=== PATIENT | female | born 1960 | race Caucasian/White ===

== ENCOUNTER → 2016-11-15 | Outpatient (CLI) | payer OTHER ==
[~2016-11-15] MED LIST: ARIMIDEX1 MG PO; CLARITIN10 MG PO; DARVOCET N 1001 TAB PO; DAYPRO600 M1 PO; FISH OIL; FLEXERIL5 MG PO; LEVOFLOXACIN500 MG PO; PREDNISONE10 MG PO; PROVENTIL0.09 MG/A1 INH; SYNTHROID,LEVO50 MCG PO; SYNTHROID0.025 MG PO; THEROMEGA1000 MG PO; VITAMIN D5000 IU PO; [UNRECOGNIZED DRUG - REMARK]
== END | disposition home or self-care (01) ==
LOC: RAD 15:10 → LAB 15:10
DX: M54.6 Pain in thoracic spine (principal)

== ENCOUNTER → 2016-12-26 | Outpatient (CLI) | payer OTHER | END | disposition home or self-care (01) | LOC: MAMMO 07:27 | DX: C50.919 Malignant neoplasm of unspecified site of unspecified female breast (principal); I89.0 Lymphedema, not elsewhere classified; R92.8 Other abnormal and inconclusive findings on diagnostic imaging of breast; Z90.11 Acquired absence of right breast and nipple ==

== ENCOUNTER 2017-11-16 11:03 | Emergency (ER) | payer OTHER ==
[~2017-11-16] VITALS: Ht 167.6 cm; Wt 92.1 kg
[2017-11-16 11:07] VITALS: BP 154/102
[2017-11-16 11:51] LABS: BASO % 0.6 % (0.0-1.0); EOS # 0.3 10*3/uL (0.0-0.4); EOS % 6.3 % (1.0-4.0); HEMATOCRIT 42.1 % (37.0-47.0); HEMOGLOBIN 13.8 g/dl (12.0-16.0); LYMPH # 1.7 10*3/uL (1.3-4.4); LYMPH % 34.3 % (27.0-41.0); MEAN CELL VOLUME 95.5 fl (81.0-99.0); MEAN CORPUSCULAR HGB 31.3 pg (27.0-31.0); MEAN CORPUSCULAR HGB CONC 32.8 g/dl (33.0-37.0); MEAN PLATELET VOLUME 11.5 fl (9.6-12.3); MONO # 0.4 10*3/uL (0.1-1.0); MONO % 7.9 % (3.0-9.0); NEUT # 2.5 10*3/uL (2.3-7.9); NEUT % 50.7 % (47.0-73.0); PLATELET COUNT AUTOMATED 192 10*3/uL (130-400); RED BLOOD COUNT 4.41 10*6/uL (4.10-5.10); RED CELL DISTRI WIDTH 13.3 % (0-14.5)
[2017-11-16 12:00] LABS: ACT PARTIAL THROMBO TIME 23.2 SECONDS (20.8-31.5)
[2017-11-16 12:08] LABS: ALBUMIN 4.1 gm/dl (3.1-4.5); ALKALINE PHOSPHATASE 87 U/L (45-117); BUN 17 mg/dl (7-24); CHLORIDE 103 mmol/L (98-107); CREATININE 0.82 mg/dL (0.55-1.02); LIPASE 76 U/L (73-393); POTASSIUM 3.5 mmol/L (3.5-5.1); SGOT/AST 16 IU/L (3-35); SGPT/ALT 23 U/L (12-78); SODIUM 140 mmol/L (136-145)
[2017-11-16 12:14] LABS: TROPONIN I < 0.015 ng/ml (<0.045)
[2017-11-16] MEDS ORDERED: PREDNISONE10 MG PO (13:25)
[2017-11-16] MEDS ORDERED: LEVAQUIN750 M1 PO (13:25)
== END 2017-11-16 13:33 | disposition home or self-care (01) ==
LOC: ED 11:03
PROVIDERS: Emergency Medicine
DX: J45.901 Unspecified asthma with (acute) exacerbation (principal); J20.9 Acute bronchitis, unspecified; Z90.89 Acquired absence of other organs; Z79.899 Other long term (current) drug therapy

== ENCOUNTER 2018-01-27 09:04 | Emergency (ER) | payer OTHER ==
[~2018-01-27] VITALS: Ht 167.6 cm; Wt 92.1 kg
[2018-01-27 09:04] VITALS: BP 148/86
[~2018-01-27 09:04] MED LIST changes: +LEVAQUIN750 M1 PO
== END 2018-01-27 09:27 | disposition home or self-care (01) ==
LOC: ED 09:04
DX: T16.2XXA Foreign body in left ear, initial encounter (principal); Z79.899 Other long term (current) drug therapy; Z90.89 Acquired absence of other organs; Y92.9 Unspecified place or not applicable

== ENCOUNTER 2018-03-07 11:03 | Emergency (ER) | payer OTHER ==
[~2018-03-07] VITALS: Ht 167.6 cm; Wt 92.1 kg
[2018-03-07 11:05] VITALS: BP 165/90
[2018-03-07] MEDS ORDERED: OMNICEF300 MG PO (11:30)
== END 2018-03-07 11:35 | disposition home or self-care (01) ==
LOC: ED 11:03
DX: J01.00 Acute maxillary sinusitis, unspecified (principal); J44.9 Chronic obstructive pulmonary disease, unspecified; Z79.2 Long term (current) use of antibiotics

== ENCOUNTER 2018-08-12 06:42 | Emergency (ER) | payer OTHER ==
[~2018-08-12] VITALS: Ht 167.6 cm; Wt 93.4 kg
[~2018-08-12 06:42] MED LIST changes: +OMNICEF300 MG PO
[2018-08-12 07:11] LABS: BILIRUBIN NEGATIVE (NEGATIVE); BLOOD 3+ (NEGATIVE); CLARITY CLOUDY (CLEAR); COLOR YELLOW (YELLOW); GLUCOSE NEGATIVE (NEGATIVE); KETONE NEGATIVE (NEGATIVE); LEUKO ESTERASE 3+ (NEGATIVE); NITRITE POSITIVE (NEGATIVE); PH 5.5 (5.0-9.0); SPECIFIC GRAVITY 1.015 (1.005-1.030); UROBILINOGEN 0.2 E.U./dl (0.2-1.0)
[2018-08-12 07:16] VITALS: BP 148/104
[2018-08-12 07:23] LABS: WBC TNTC wbc/hpf (0-5)
[2018-08-12] MEDS ORDERED: DOXYCYCLINE100 M3 PO (08:06)
== END 2018-08-12 08:40 | disposition home or self-care (01) ==
LOC: ED 06:42
PROVIDERS: Student in an Organized Health Care Education/Training Program
DX: J20.9 Acute bronchitis, unspecified (principal); N39.0 Urinary tract infection, site not specified; J44.9 Chronic obstructive pulmonary disease, unspecified; Z79.2 Long term (current) use of antibiotics; Z79.899 Other long term (current) drug therapy

== ENCOUNTER → 2019-02-02 | Outpatient (CLI) | payer OTHER ==
[~2019-02-02] MED LIST changes: +DOXYCYCLINE100 M3 PO
[2019-02-02 09:15] LABS: BASO # 0.1 10*3/uL (0.0-0.1); EOS # 0.3 10*3/uL (0.0-0.4); EOS % 5.8 % (1.0-4.0); HEMATOCRIT 41.9 % (37.0-47.0); HEMOGLOBIN 13.6 g/dl (12.0-16.0); LYMPH # 2.1 10*3/uL (1.3-4.4); LYMPH % 40.6 % (27.0-41.0); MEAN CORPUSCULAR HGB 32.5 pg (27.0-31.0); MEAN CORPUSCULAR HGB CONC 32.5 g/dl (33.0-37.0); MEAN PLATELET VOLUME 10.8 fl (9.6-12.3); MONO # 0.4 10*3/uL (0.1-1.0); MONO % 7.8 % (3.0-9.0); NEUT # 2.3 10*3/uL (2.3-7.9); NEUT % 44.6 % (47.0-73.0); PLATELET COUNT AUTOMATED 206 10*3/uL (130-400); RED BLOOD COUNT 4.19 10*6/uL (4.10-5.10); RED CELL DISTRI WIDTH 13.9 % (0-14.5); WHITE BLOOD COUNT 5.2 10*3/uL (4.8-10.8)
[2019-02-02 09:38] LABS: ALBUMIN 4.3 gm/dl (3.1-4.5); ALKALINE PHOSPHATASE 90 U/L (45-117); BUN 15 mg/dl (7-24); CHLORIDE 108 mmol/L (98-107); CHOLESTEROL 222 mg/dL (<200); FREE T4 0.91 ng/dl (0.76-1.46); HDL CHOLESTEROL 87 mg/dl (40-60); LDL CHOLESTEROL 113 mg/dL (9-159); POTASSIUM 3.5 mmol/L (3.5-5.1); SGOT/AST 17 IU/L (3-35); SGPT/ALT 22 U/L (12-78); SODIUM 142 mmol/L (136-145); TOTAL PROTEIN 8.4 gm/dL (6.4-8.2); TRIGLYCERIDES 111 mg/dl (<150); VLDL CHOLESTEROL 22 mg/dL (6-40)
[2019-02-02 10:58] LABS: VITAMIN D, 25-HYDROXY 19.6 ng/mL (30-100)
== END | disposition home or self-care (01) ==
LOC: LAB 08:27 → US 09:00
PROVIDERS: Internal Medicine
DX: Z13.1 Encounter for screening for diabetes mellitus (principal); Z13.220 Encounter for screening for lipoid disorders; Z13.21 Encounter for screening for nutritional disorder; I10 Essential (primary) hypertension; E55.9 Vitamin D deficiency, unspecified; R60.0 Localized edema

== ENCOUNTER → 2019-02-06 | Outpatient (CLI) | payer OTHER | END | disposition home or self-care (01) | LOC: CT 13:00 | DX: R10.84 Generalized abdominal pain (principal) ==

== ENCOUNTER 2019-04-25 04:31 | Inpatient (IN) | payer OTHER ==
[2019-04-25] VITALS (9 sets, daily range): BP systolic 112–122; BP diastolic 69–102
[~2019-04-25] VITALS: Ht 167.6 cm; Wt 93.0 kg
--- NOTE | ~2019-04-25 | CON ---
[place], [place] REPORT OF CONSULTATION NAME: MEAGAN DENTON [facility] #: [id number] UNIT #: [id number] ROOM: [facility] DOCTOR: MADDY العراقي MD BIRTHDATE: [birth year] DOS: 04/25/2019 PULMONARY CONSULTATION, EVALUATION AND MANAGEMENT REASON FOR CONSULTATION: For the assessment of current abnormal respiratory symptom and respiratory distress. HISTORY OF PRESENT ILLNESS: This is a 59-year-old white female patient who has been brought to the hospital this morning. The patient presented to the hospital this morning at 4:32 seen by the ER triage nurse. The patient has reported symptoms of cough, which was started in the last couple of days, which has been noted gradually worsening, symptoms started after upper respiratory tract infection. The patient developed significant symptoms of shortness of breath, in distress, was assessed in the Emergency Room. She has been noted with tachycardia in the Emergency Room. She has been given 3 DuoNeb treatment, also given steroids and other treatment in the Emergency Room. The patient has been admitted to the hospital per order of primary care physician. This morning, the patient was seen, she has been using oxygen supplementation 3 liters nasal cannula. The coughing has been noted to be intermittently and not resolved. Denies symptoms of fever or chills. The wheezing was reported by the patient also seemed to be decreased. There were no symptoms of chest pain, stated by the patient. REVIEW OF SYSTEMS: CONSTITUTIONAL SYMPTOMS: Fatigue and tiredness noted without any symptoms of fever or chills. EYES: Denies any burning, redness, or tenderness. EARS, NOSE, THROAT SYMPTOMS: No sore throat, hoarseness, otalgia, postnasal drainage or epistaxis. CARDIOVASCULAR: Denies angina pain, edema or pain of the lower extremities. GASTROINTESTINAL SYMPTOMS: Denies dysphagia, nausea, vomiting, diarrhea, abdominal pain, hematemesis, melena or hematochezia. SKIN: Denies lesions or rashes. MUSCULOSKELETAL: No acute joint pain, redness, or tenderness. CENTRAL NERVOUS SYSTEM: No dizziness, headache, diplopia or syncopal episodes. Remaining systems were reviewed, they were noted all negative. PAST MEDICAL HISTORY: 1. Known with history of uncomplicated moderate persistent bronchial asthma. 2. Allergic rhinitis. 3. Nasal polyposis removed with the surgery. 4. Cancer of the right breast treated with a radical mastectomy and hormonal treatment. 5. Hypothyroidism. 6. History of obstructive sleep apnea disorder, nonadherence with the treatment. 7. History of chronic right diaphragmatic paralysis, idiopathic. PAST SURGICAL HISTORY: [place], [place] REPORT OF CONSULTATION NAME: MEAGAN DENTON UNIT #: [id number] ROOM: [facility] DOCTOR: JULISSA COLÓN MD,MADDY BIRTHDATE: [birth year] 1. Reported as nasal polyps removal. 2. Modified radical mastectomy on the right side in 1999. 3. Ovarian cyst removal. SOCIAL HISTORY: The patient reported tobacco use for only few years as a light tobacco use couple of cigarettes a day that has been discontinued. She denies history of alcohol use or illicit drug use. The patient is single, has one child, lives in own home. Denies history of alcohol use or any illicit drug use. FAMILY HISTORY: The patient's father at 55 years with complication of lung cancer. Mother at age of 84 years with complication of myocardial infarction. One of the sisters at age of 45 with complication related to the lung cancer. CURRENT MEDICATIONS: Administered was noted as IV Solu-Medrol 20 mg t.i.d., Flonase b.i.d., Synthroid 50 mcg daily, Coreg 3.125 mg p.o. b.i.d., IV Rocephin, Singulair 10 mg daily, DuoNeb q. 4 hours. DRUG ALLERGIES: Noted as no known drug allergies. PHYSICAL EXAMINATION: GENERAL: A 59-year-old female currently noted to be awake, alert, without any distress this morning of assessment in the ICU, height of 5 feet 6 inches, weight of 205 pounds. VITAL SIGNS: For the patient recorded a normal temperature, respiratory rate 20-24, heart rate of 143, 120, sinus tachycardia, blood pressure 117/71 to 120/84. Pulse oxygen saturation recorded at rest to room air 94% saturation, 60% oxygen saturation noted upon assessment in the Emergency Room. Then, 100% nonrebreather over 99% saturation. HEENT: Examination shows head was atraumatic. Eyes nonicterus. NECK: Supple. CARDIOVASCULAR SYSTEM: S1, S2 is audible. LUNGS: Noted with decreased breath sounds, scattered wheezing, no crackles. ABDOMEN: Flat, soft, nontender. Bowel sounds present. EXTREMITIES: Without edema, clubbing, cyanosis. MUSCULOSKELETAL: Without acute deformity. VISIBLE SKIN: No lesions or rashes. CENTRAL NERVOUS SYSTEM: Cranial nerves 2-12 intact. LABORATORY DATA: CBC that was done for this patient on 04/25/2019, WBC count 14.7, hemoglobin and hematocrit, platelet count were noted as normal. The CMP that was done on admission, glucose 160, BUN and creatinine normal, remaining electrolytes normal. Bilirubin 1.9, mildly elevated. PT/PTT were noted as normal. Arterial blood gas, which was done at 7:10 as I ordered, pH of 7.41, pCO2 of 38, pO2 78.2. Chest x-ray, which was done shows elevation of the right hemidiaphragm without any acute abnormalities. CT scan of the chest that was done for this patient as well shows elevation of right hemidiaphragm, which is a chronic finding. Scarring noted in the right apical area for the patient as well. There were no findings of acute pulmonary infiltration. Elevation of [place], [place] REPORT OF CONSULTATION NAME: MEAGAN DENTON UNIT #: [id number] ROOM: [facility] DOCTOR: [facility]N [facility] BIR[facility]: [birth year] right hemidiaphragm was noted. Left lung was noted clear. The right lung noted clear of any acute infiltration or nodules. IMPRESSION: 1. The patient who has been known with history of cancer of the breast on the right side with surgical intervention in 1999 without any recurrence and history of chronic right diaphragmatic paralysis and bronchial asthma, currently presented and admitted to the hospital with acute severe hypoxemic respiratory failure. 2. Sinus tachycardia related to current acute exacerbation of bronchial asthma. 3. History of allergic rhinitis, nasal polyposis. 4. Family history of lung cancer in the father and one of the sister who from that. 5. Previous remote low-grade tobacco use, smoking was not continued by the patient. PLAN OF MANAGEMENT: Continue the current oxygen supplementation at the present time and monitoring sinus tachycardia. Continue bronchodilators and corticosteroids. Continue antibiotics. Sputum for Gram stain culture will be done if the patient expectorate any sputum. BiPAP is not needed. Monitor the patient's respiratory status closely as well. Other supportive therapy, plan of management, care plan of treatment, additional treatment changes will be recommended based on the progression of the illness. Usual care, other supportive plan of management, care plan of treatment and therapies. MADDY COSTA MD CM:CONSTR:REPORT OF CONSULTATION 1042 04/25/194 interface
--- NOTE | ~2019-04-25 | EKG ---
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
--- NOTE | ~2019-04-25 | EKG ---
[place], [place] ELECTROCARDIOGRAM REPORT NAME: MEAGAN DENTON UNIT #: [id number] ROOM: [facility] DOCTOR: JOVITA DRAFT REPORT BIRTHDATE: [birth year] 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
--- NOTE | ~2019-04-25 | PR ---
[place], [place] PROGRESS NOTE [id number] UN[facility] #: [id number] ROOM: [facility] DOCTOR: JULISSA COLÓN MD,MADDY BIRTHDATE: [birth year] DOS: 04/26/2019 PULMONARY PROGRESS NOTE SUBJECTIVE: The patient has been noted comfortable at this time, has not been noted further episodes of hypoxia, but noted panic attacks at times by the nursing staff resulting in symptoms of shortness of breath. Denies symptoms of fever or chills. This morning, the patient noted comfortably on the bed without any distress this morning of assessment. OBJECTIVE: VITAL SIGNS: Normal temperature, respiratory rate 20, heart rate 98, blood pressure 112/82. Pulse oxygen saturation on room air 94% saturation. HEENT: Examination shows head was atraumatic. Eyes nonicterus. NECK: Supple. CARDIOVASCULAR SYSTEM: S1, S2 audible. LUNGS: Without wheeze or crackles. ABDOMEN: Soft, nontender. Bowel sounds present. EXTREMITIES: The patient noted without any acute edema. MUSCULOSKELETAL: Without any deformities. LABORATORY DATA: No labs were done today. IMPRESSION: The patient with resolving acute hypoxic respiratory failure with some panic attack with exacerbation of chronic obstructive pulmonary disease. The patient has been ambulated, but noted with lowest pulse oximetry at 89%, which are recorded quickly within a minute or so to normal level. PLAN OF MANAGEMENT: The patient could be considered for home discharge on oral dose of tapering prednisone to be given. She will also need to be assessed for the medical panic disorder by the primary care physician. A 6-minute walk test to be done prior to discharge if that occurs today. MADDY COSTA MD CM:PNTRANS [id number] [id number] MADDY COLÓN MD 04/26/19 7780 interface
--- NOTE | ~2019-04-25 | WRIGHTHP ---
[place], [place] PATIENT HISTORY AND PHYSICAL EXAM NAME: MEAGAN DENTON [facility] #: [id number] UNIT #: [id number] ROOM: [facility] DOCTOR: NAKUL DOUGLAS MD BIRTHDATE: [birth year] DOS: 04/25/2019 HISTORY OF PRESENT ILLNESS: A 59-year-old female with past medical history of; 1. Severe persistent asthma. 2. Chronic obstructive pulmonary disease. 3. History of breast cancer with right mastectomy in the year 1999. 4. History of hypothyroidism. 5. Peptic ulcer disease. The patient presented to [facility] Emergency Department with increasing shortness of breath starting yesterday. The patient's pulse ox was found to be as low as 65%. In the Emergency Department, she was tachycardic. The patient was found to have acute or chronic respiratory failure with acute exacerbation of chronic obstructive pulmonary disease and after initial treatment and 3 breathing treatments in the Emergency Department and a CT scan of the chest, which did not show any pneumonia or congestive heart failure. The patient was admitted to ICU for close monitoring and under supervision of the cook fish eggs, Dr. Griggs. After admission and on oxygen, the patient's pulse oximetry has improved to normal. No complaints of chest pain. No dizziness or fainting episode. No other GI or urinary symptoms. REVIEW OF SYSTEMS: RESPIRATORY: Increased shortness of breath and hypoxemia. GASTROINTESTINAL: No nausea, vomiting, diarrhea or constipation. CARDIOVASCULAR SYSTEM: No chest pains or palpitations. GENITOURINARY: No burning or frequency of the urine. No abdominal pains. FAMILY HISTORY: Noncontributory. HOME MEDICATIONS: The patient on Flonase, Coreg, levothyroxine, Singulair, DuoNebs at home. ALLERGIES: No known drug allergies. PHYSICAL EXAMINATION: GENERAL: Alert, oriented x 3, in no visible distress. HEENT AND NECK: Extraocular movements are intact. Sclerae are anicteric. Oral mucosa is moist and clean. No obvious facial weakness. Neck is supple without any lymphadenopathy. No thyromegaly. No JVD. No carotid arterial bruits. LUNGS: Decreased breath sounds all over. CARDIOVASCULAR SYSTEM: Heart rate is regular in rate and rhythm. S1 and S2 normally audible. No significant murmur or any other abnormal cardiac sounds. ABDOMEN: Soft, nontender. No obvious organomegaly. Bowel sounds are present. No obvious herniation. EXTREMITIES: Without significant cyanosis or edema. Warm to touch. CENTRAL NERVOUS SYSTEM: Alert and oriented x 3. Cranial nerves II-XII are intact. Speech is normal. The patient is able to move all extremities. Normal muscle strength. Deep tendon reflexes are equal on both sides. Plantars were downgoing. [place], [place] PATIENT HISTORY AND PHYSICAL EXAM NAME: MEAGAN DENTON [facility] #: [id number] UNIT #: [id number] ROOM: [facility] DOCTOR: NAKUL DOUGLAS MD BIRTHDATE: [birth year] LABORATORY DATA: CT of the chest without acute abnormality and no pneumonia. Cardiac enzymes negative. ProBNP at 128. Blood gases showing baseline pH, pO2 of 78, pCO2 of 38. Normal serum electrolytes. Blood sugar 160, bilirubin 1.9. IMPRESSION: 1. The patient with acute exacerbation of chronic obstructive pulmonary disease and acute exacerbation of severe persistent asthma with acute over chronic respiratory failure with pulse ox of only 65% improved with 3 breathing treatments. The patient was also tachycardic and is being observed closely in the ICU and treated with Solu-Medrol, antibiotic, oxygen and nebulizer treatments and Dr. Griggs, the cook fish eggs has been consulted to follow. 2. Benign essential hypertension, treated and controlled. The patient remains on Coreg. 3. Hypothyroidism, replaced with levothyroxine. 4. History of peptic ulcer disease, presently asymptomatic. 5. History of right breast cancer and right mastectomy in remote past year 1999. NAKUL DOUGLAS MD CM:HISPHYS:PATIENT HISTORY AND PHYSICAL EXAMINATION 1039 1140 NAKUL DOUGLAS MD 04/25/19 1137 interface
--- NOTE | ~2019-04-25 | DS ---
[place], [place] DISCHARGE SUMMARY NAME: MEAGAN DENTON UNIT #: [id number] ROOM: [facility] DOCTOR: NAKUL DOUGLAS MD BIRTHDATE: [birth year] DOS: 04/26/2019 DISCHARGE DIAGNOSES: 1. Acute exacerbation of chronic obstructive pulmonary disease with acute over chronic respiratory failure with hypoxemia. 2. Benign essential hypertension. 3. Hypothyroidism. 4. Peptic ulcer disease. 5. History of right breast cancer and right mastectomy, year 1999. 6. Severe persistent asthma. HOSPITAL COURSE: The patient presented to [facility] hypoxemic with a 65% pulse ox, complaining of shortness of breath and she was also found to be tachycardic. The patient was admitted to the ICU and treated with bronchodilators, corticosteroids, oxygen and antibiotic and her breathing improved quickly. Dr. Griggs, the blood tester fowl evaluated and cleared her for discharge to home today because the patient was insisting on going home to take care of her dog also and the patient says she is going to leave anyway whether discharged or not. Sinus tachycardia related to respiratory failure has improved. Heart rate has come down to around 100 beats per minute from 120-130 beats per minute. Benign essential hypertension, treated and controlled. The patient takes Coreg. Hypothyroidism, replaced with levothyroxine. Peptic ulcer disease, presently asymptomatic. Right breast cancer, status post right mastectomy in the year 1999. LABORATORY DATA: Cardiac enzymes were negative. CT of the chest without contrast without any acute abnormality. Normal serum electrolytes, BUN and creatinine. Normal CBC except for white cell count of 14,700 on admission. DISCHARGE MANAGEMENT: Medrol Dosepak, Coreg 3.125 mg b.i.d., Flonase nasal spray 2 sprays each nostril once a day, levothyroxine 50 mcg daily, Singulair 10 mg a day, DuoNeb q.i.d. FOLLOWUP: With PCP in less than a week, [place], [place] DISCHARGE SUMMARY NAME: MEAGAN DENTON UNIT #: [id number] ROOM: [facility] DOCTOR: NAKUL DOUGLAS MD BIRTHDATE: [birth year] NAKUL DOUGLAS MD CM:MATTHEW 1214 1538 NAKUL DOUGLAS MD 04/26/19 1536 interface
--- NOTE | ~2019-04-25 | EKG ---
[place], [place] ELECTROCARDIOGRAM REPORT NAME: MEAGAN DENTON UNIT #: [id number] ROOM: [facility] DOCTOR: JOVITA DRAFT REPORT BIRTHDATE: [birth year] [facility] Test Date: 2019-04-25 Test Time: 07:16:47 Pat Name: MEAGAN DENTON Department: Room: 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
[2019-04-25 05:26] LABS: BASO % 0.3 % (0.0-1.0); EOS # 0.1 10*3/uL (0.0-0.4); EOS % 0.5 % (1.0-4.0); HEMATOCRIT 40.1 % (37.0-47.0); HEMOGLOBIN 13.2 g/dl (12.0-16.0); LYMPH # 1.8 10*3/uL (1.3-4.4); LYMPH % 12.3 % (27.0-41.0); MEAN CORPUSCULAR HGB 33.6 pg (27.0-31.0); MEAN CORPUSCULAR HGB CONC 32.9 g/dl (33.0-37.0); MEAN PLATELET VOLUME 10.9 fl (9.6-12.3); MONO # 0.9 10*3/uL (0.1-1.0); MONO % 5.9 % (3.0-9.0); NEUT # 11.9 10*3/uL (2.3-7.9); NEUT % 80.7 % (47.0-73.0); PLATELET COUNT AUTOMATED 181 10*3/uL (130-400); RED BLOOD COUNT 3.93 10*6/uL (4.10-5.10); RED CELL DISTRI WIDTH 13.2 % (0-14.5); WHITE BLOOD COUNT 14.7 10*3/uL (4.8-10.8)
[2019-04-25 05:46] LABS: ACT PARTIAL THROMBO TIME 24.4 SECONDS (20.0-32.1); ALBUMIN 4.4 gm/dl (3.1-4.5); ALKALINE PHOSPHATASE 69 U/L (45-117); BUN 10 mg/dl (7-24); CHLORIDE 104 mmol/L (98-107); CREATININE 0.89 mg/dL (0.55-1.02); POTASSIUM 4.1 mmol/L (3.5-5.1); SGOT/AST 15 IU/L (3-35); SGPT/ALT 26 U/L (12-78); SODIUM 136 mmol/L (136-145); TOTAL PROTEIN 8.1 gm/dL (6.4-8.2)
[2019-04-25 05:47] LABS: TROPONIN I < 0.015 ng/ml (<0.045)
--- NOTE | 2019-04-25 07:17 | NUR ---
REPORT RECEIVED AT 0705 FROM ANDREY HAIDER. THIS PT IS AWAKE AND ALERT. HER COLOR IS FAIR,SKIN W/D. RESPIRATIONS APPEAR MILDLY LABORED. PULSE OX ON 3L NASAL O2 IS 98% VS ARE STABLE. PT TELLS ME THAT SHE FEELS MUCH BETTER NOW,SHORTNESS OF BREATH HAS IMPROVED SINCE ARRIVAL. NAZARIO HAIDER
[2019-04-25 07:18] LABS: ABG BASE EXCESS 0.2 mmol/L (-2.0-2.0); ABG HCO3 24.1 mmol/l (22-26); ARTERIAL BLOOD GAS PCO2 38.6 mmHg (35-45); ARTERIAL BLOOD GAS PH 7.413 (7.35-7.45); ARTERIAL BLOOD GAS PO2 78.2 mmHg (80-90)
--- NOTE | 2019-04-25 07:57 | NUR ---
ATTEMPTING TO CALL ICU FOR PERMISSION TO BRING PT TO UNIT AND GIVE REPORT. PHONE IS NOT BEING ANSWERED. NAZARIO HAIDER
--- NOTE | 2019-04-25 08:20 | NUR ---
A 59, admitted to ICCU, under the services of Dr. MISAEL ANGELES,NAKUL Huerta with a diagnosis of HYPOXIA. Chief complaint is SHORTNESS OF BREATH. Patient arrived via ambulatory from ER. Monitor applied. Initial assessment completed. Vital signs taken and recorded. DR. MISAEL ANGELES,NAKUL Huerta notified of admission to the unit. Orders received. See assessment for past medical history, medications and allergies. Patient and/or family oriented to unit. [facility] ICCU visitation policy reviewed. Clothing/patient valuable form completed. JEFFERY CUEVA
[2019-04-25] MEDS ORDERED: COREG3.125 MG PO (08:28)
[2019-04-25] MEDS ORDERED: SINGULAIR10 M1 PO (08:30)
[2019-04-25] MEDS ORDERED: FLONASE ALLERG9.9 ML NAS (08:31)
[2019-04-25] MEDS ORDERED: PROAIR HFA8.5 GM INH (08:33)
[2019-04-25] MEDS ORDERED: ARNUITY ELLIP100 MCG INH (10:08)
[2019-04-25] MEDS ORDERED: VITAMIN D50000 UNIT PO (10:13)
--- NOTE | 2019-04-25 19:30 | NUR ---
PATIENT SITTING UP IN BED WITH FAMILY AT THE BEDSIDE. PATIENT DENIES ANY PAIN, DISCOMFORT OR SHORTNESS OF BREATHE UPON ASSESSMENT. CHELSEA HOSE APPLIED, PATIENT IS SINUS TACH ON THE MONITOR. CALL LIGHT WITHIN REACH. SEE ASSESSMENT.
[2019-04-26] VITALS: BP 113/69
[2019-04-26 04:00] VITALS: BP 106/77
[2019-04-26 08:00] VITALS: BP 112/82
--- NOTE | 2019-04-26 09:45 | NUR ---
PT WALKED IN JOYA TO ELEVATOR AND BACK AROUND, POX 93% DR COSTA HERE AND AWARE
--- NOTE | 2019-04-26 11:00 | NUR ---
Housekeeper Cleaning Cooking in to talk to patient. Patient states lives at home alone with her son calling to check in on her every day. There are 3 steps in the home. Physician: Dr. Karina Ly Pharmacy: [facility] Home health services: none Patient's level of ADLs: INDEPENDENT Patient has working utilities: yes DME: none Follow-up physician's appointment after d/c: she prefers to make her own follow up appt after discharge Does patient want to access PORTAL?: no Discharge plan discussed with patient. She lives at home alone with her son calling to check in on her every day. She is independent in her ADLs and ambulation. Discussed home health care services and she denies any home needs at this time. She states she needs to get home today and take care of her dog as he is taking care of himself right now. Asked if there was anyone who could take care of him while she is here in the hospital and she stated there was not. When medically stable she will be discharged to home. She will drive herself home as her car is here in the ER parking lot. VALENCIA TREVINO
[2019-04-26] MEDS ORDERED: MEDROL DOSEPAK4 MG PO (12:01)
--- NOTE | 2019-04-26 12:09 | NUR ---
PATIENT TESTED FOR THE USE OF HOME OXYGEN. ON ROOM AIR PATIENTS VITALS WERE: HEART RATE:96 BLOOD PRESSURE:112/82 RESPIRATORY RATE:18 SPO2:93% DURING AMBULATION THE PATIENT DID NOT COMPLAIN OF ANY SHORTNESS OF BREATH NOR SHAKES, WEAKNESS. PATIENTS SPO2 WOULD DROP DOWN TO 88% FOR A SECOND, AND JUMP BACK UP TO 91%. SUSTAINING MOSTLY AT 90-91%. PATIENT DID NOT QUALIFY.
--- NOTE | 2019-04-26 12:20 | NUR ---
DR DOUGLAS HERE, PT DC ARIANNEBURNHAM
== END 2019-04-26 12:20 | disposition home or self-care (01) | DRG 189 ==
LOC: ED 04:31 → ICCU 06:51 → EDHOLD 06:51 → ICCU 07:40
PROVIDERS: Emergency Medicine; ADMIT Internal Medicine
DX: J96.21 Acute and chronic respiratory failure with hypoxia (principal); J44.1 Chronic obstructive pulmonary disease with (acute) exacerbation; J45.51 Severe persistent asthma with (acute) exacerbation; E03.9 Hypothyroidism, unspecified; I10 Essential (primary) hypertension; F41.0 Panic disorder [episodic paroxysmal anxiety]; G47.33 Obstructive sleep apnea (adult) (pediatric); R00.0 Tachycardia, unspecified; K27.9 Peptic ulcer, site unspecified, unspecified as acute or chronic, without hemorrhage or perforation; Z79.899 Other long term (current) drug therapy; Z87.440 Personal history of urinary (tract) infections; Z90.11 Acquired absence of right breast and nipple; Z82.49 Family history of ischemic heart disease and other diseases of the circulatory system; Z80.8 Family history of malignant neoplasm of other organs or systems; Z87.11 Personal history of peptic ulcer disease; Z85.3 Personal history of malignant neoplasm of breast; Z87.891 Personal history of nicotine dependence; Z80.1 Family history of malignant neoplasm of trachea, bronchus and lung

== ENCOUNTER → 2019-07-15 | Outpatient (CLI) | payer OTHER ==
[~2019-07-15] MED LIST changes: +ARNUITY ELLIP100 MCG INH; +COREG3.125 MG PO; +FLONASE ALLERG9.9 ML NAS; +MEDROL DOSEPAK4 MG PO; +PROAIR HFA8.5 GM INH; +SINGULAIR10 M1 PO; +VITAMIN D50000 UNIT PO
--- NOTE | ~2019-07-15 | ST ---
[place], [place] EXERCISE STRESS TEST REPORT NAME: MEAGAN DENTON [facility] #: [id number] UNIT #: [id number] ROOM: DOCTOR: THEO DIALLO MD BIRTHDATE: [birth year] DOS: LEXISCAN CARDIOLITE STRESS TEST REASON FOR TESTING: Evaluation of congestive heart failure. DESCRIPTION OF PROCEDURE: After explaining the procedure and obtaining consent, the patient was subjected to Lexiscan infusion of 0.4 mg IV. Resting EKG showed sinus with right bundle branch block, nonspecific STs. During the infusion, the patient complained of a funny feeling, but did not have any chest pain or shortness of breath. No arrhythmias were noted. No ST-T wave changes were seen. After the Lexiscan infusion was over, she was injected with Cardiolite and stress images were taken. ASSESSMENT AND PLAN: Lexiscan stress test without any ST-T wave changes. Cardiolite images pending. THEO DIALLO MD CM:STRESS:EXERCISE STRESS TEST REPORT [id number] THEO DIALLO MD
--- NOTE | 2019-07-15 08:36 | NUR ---
INFORMED SIGNED CONSENT OBTAINED FOR LEXISCAN STRESS TEST WITH DR ORTIZ. RESTING EKG NSR HR 83 BP 120/74. PULSE OX 97% LUNGS CLEAR. PT COMPLETED ONE MINUTE OF A LEXISCAN PROTOCOL WITH PT RECEIVING LEXISCAN 0.4MG IV OVER 10 SECONDS. NO ARRHYTHMIAS OR ST CHANGES NOTED. LAST RECOVERY HR OF 124 BP 118/72. PT IN STABLE CONDITION, AWIATING NUCLEAR IMAGES.
== END | disposition home or self-care (01) ==
LOC: CARD 01:12
DX: R06.02 Shortness of breath (principal)

== ENCOUNTER → 2019-09-30 | Outpatient (CLI) | payer OTHER ==
[2019-09-30 11:15] LABS: BASO % 0.7 % (0.0-1.0); EOS # 0.4 10*3/uL (0.0-0.4); EOS % 6.9 % (1.0-4.0); HEMATOCRIT 43.3 % (37.0-47.0); LYMPH # 2.1 10*3/uL (1.3-4.4); LYMPH % 39.1 % (27.0-41.0); MEAN CELL VOLUME 101.2 fl (81.0-99.0); MEAN CORPUSCULAR HGB 32.7 pg (27.0-31.0); MEAN CORPUSCULAR HGB CONC 32.3 g/dl (33.0-37.0); MEAN PLATELET VOLUME 11.5 fl (9.6-12.3); MONO # 0.5 10*3/uL (0.1-1.0); MONO % 8.2 % (3.0-9.0); NEUT # 2.5 10*3/uL (2.3-7.9); NEUT % 44.9 % (47.0-73.0); PLATELET COUNT AUTOMATED 207 10*3/uL (130-400); RED BLOOD COUNT 4.28 10*6/uL (4.10-5.10); RED CELL DISTRI WIDTH 13.2 % (0-14.5); WHITE BLOOD COUNT 5.5 10*3/uL (4.8-10.8)
[2019-09-30 11:32] LABS: ALBUMIN 3.9 gm/dl (3.1-4.5); ALKALINE PHOSPHATASE 84 U/L (45-117); BUN 9 mg/dl (7-24); CHLORIDE 108 mmol/L (98-107); CHOLESTEROL 170 mg/dL (<200); CREATININE 0.74 mg/dL (0.55-1.02); FREE T4 1.05 ng/dl (0.76-1.46); HDL CHOLESTEROL 72 mg/dl (40-60); LDL CHOLESTEROL 76 mg/dL (9-159); SGOT/AST 20 IU/L (3-35); SGPT/ALT 26 U/L (12-78); SODIUM 137 mmol/L (136-145); TOTAL PROTEIN 7.9 gm/dL (6.4-8.2); TRIGLYCERIDES 111 mg/dl (<150); VLDL CHOLESTEROL 22 mg/dL (6-40)
[2019-09-30 12:46] LABS: VITAMIN D, 25-HYDROXY 29.7 ng/mL (30-100)
== END | disposition home or self-care (01) ==
LOC: LAB 10:36
PROVIDERS: Internal Medicine
DX: I10 Essential (primary) hypertension (principal); D51.9 Vitamin B12 deficiency anemia, unspecified; Z00.00 Encounter for general adult medical examination without abnormal findings; E78.2 Mixed hyperlipidemia; E55.9 Vitamin D deficiency, unspecified

== ENCOUNTER 2019-12-23 13:11 | Emergency (ER) | payer OTHER ==
[~2019-12-23] VITALS: Ht 167.6 cm; Wt 104.3 kg
[2019-12-23 13:51] VITALS: BP 141/94
[2019-12-23 14:52] LABS: BASO # 0.1 10*3/uL (0.0-0.1); EOS # 0.4 10*3/uL (0.0-0.4); EOS % 8.8 % (1.0-4.0); HEMATOCRIT 43.2 % (37.0-47.0); LYMPH # 2.3 10*3/uL (1.3-4.4); LYMPH % 47.6 % (27.0-41.0); MEAN CELL VOLUME 98.6 fl (81.0-99.0); MEAN CORPUSCULAR HGB 32.4 pg (27.0-31.0); MEAN CORPUSCULAR HGB CONC 32.9 g/dl (33.0-37.0); MEAN PLATELET VOLUME 11.1 fl (9.6-12.3); MONO # 0.5 10*3/uL (0.1-1.0); MONO % 9.4 % (3.0-9.0); NEUT # 1.6 10*3/uL (2.3-7.9); NEUT % 33.2 % (47.0-73.0); PLATELET COUNT AUTOMATED 197 10*3/uL (130-400); RED BLOOD COUNT 4.38 10*6/uL (4.10-5.10); RED CELL DISTRI WIDTH 12.6 % (0-14.5); WHITE BLOOD COUNT 4.9 10*3/uL (4.8-10.8)
[2019-12-23 15:07] LABS: BUN 14 mg/dl (7-24); CHLORIDE 106 mmol/L (98-107); CREATININE 0.85 mg/dL (0.55-1.02); SODIUM 139 mmol/L (136-145)
[2019-12-23 15:09] LABS: TROPONIN I < 0.015 ng/ml (<0.045)
[2019-12-23] MEDS ORDERED: PREDNISONE20 M1 PO (15:36)
[2019-12-23] MEDS ORDERED: AVPAK AZITHROM250 MG PO (15:36)
== END 2019-12-23 16:17 | disposition home or self-care (01) ==
LOC: ED 13:11
PROVIDERS: Emergency Medicine
DX: J44.1 Chronic obstructive pulmonary disease with (acute) exacerbation (principal); R06.02 Shortness of breath; I10 Essential (primary) hypertension; E78.00 Pure hypercholesterolemia, unspecified; E11.9 Type 2 diabetes mellitus without complications; Z79.899 Other long term (current) drug therapy

== ENCOUNTER → 2020-03-18 | Outpatient (CLI) | payer OTHER ==
[~2020-03-18] MED LIST changes: +AVPAK AZITHROM250 MG PO; +PREDNISONE20 M1 PO
[2020-03-18 14:14] LABS: FREE T4 1.29 ng/dl (0.76-1.46); THYROXINE (T4) TOTAL 10.8 ug/dl (4.8-13.9)
[2020-03-18 14:19] LABS: THYROID STIM HORMONE (HS) 0.955 uIU/ml (0.358-4.75)
== END | disposition home or self-care (01) ==
LOC: LAB 12:49 → RAD 13:30
PROVIDERS: Internal Medicine
DX: I11.0 Hypertensive heart disease with heart failure (principal); I50.32 Chronic diastolic (congestive) heart failure; R06.02 Shortness of breath; R06.00 Dyspnea, unspecified; E03.9 Hypothyroidism, unspecified; R42 Dizziness and giddiness; Z78.0 Asymptomatic menopausal state

== ENCOUNTER → 2022-06-09 | Outpatient (CLI) | payer MEDICARE, OTHER | LOC: LAB 11:37 | PROVIDERS: ATTEND Internal Medicine | DX: M25.511 Pain in right shoulder (principal) ==

== ENCOUNTER → 2022-10-04 | Outpatient (CLI) | payer OTHER ==
[2022-10-04 08:18] LABS: BASO % 0.8 % (0.0-1.0); EOS # 0.2 10*3/uL (0.0-0.4); EOS % 4.5 % (1.0-4.0); HEMATOCRIT 45.8 % (37.0-47.0); MEAN CELL VOLUME 99.8 fl (81.0-99.0); MEAN CORPUSCULAR HGB 32.2 pg (27.0-31.0); MEAN CORPUSCULAR HGB CONC 32.3 g/dl (33.0-37.0); MEAN PLATELET VOLUME 10.9 fl (9.6-12.3); MONO # 0.5 10*3/uL (0.1-1.0); MONO % 9.7 % (3.0-9.0); NEUT # 2.4 10*3/uL (2.3-7.9); NEUT % 46.8 % (47.0-73.0); PLATELET COUNT AUTOMATED 209 10*3/uL (130-400); RED BLOOD COUNT 4.59 10*6/uL (4.10-5.10); RED CELL DISTRI WIDTH 12.6 % (0-14.5); WHITE BLOOD COUNT 5.1 10*3/uL (4.8-10.8)
[2022-10-04 08:36] LABS: ALKALINE PHOSPHATASE 70 U/L (46-116); BUN 8 mg/dl (9-23); CHLORIDE 102 mmol/L (98-107); CHOLESTEROL 198 mg/dL (<200); FREE T4 1.48 ng/dl (0.89-1.76); LDL CHOLESTEROL 95 mg/dL (9-159); POTASSIUM 3.8 mmol/L (3.4-5.1); SGPT/ALT 16 U/L (10-49); T3 UPTAKE 20.7 % (22.4-36.7); THYROID STIM HORMONE (HS) 3.508 uIU/ml (0.550-4.780); TRIGLYCERIDES 119 mg/dl (<150)
== END | disposition home or self-care (01) ==
LOC: LAB 07:51
PROVIDERS: ATTEND Internal Medicine
DX: I10 Essential (primary) hypertension (principal); E03.9 Hypothyroidism, unspecified; D51.9 Vitamin B12 deficiency anemia, unspecified; E55.9 Vitamin D deficiency, unspecified; Z13.89 Encounter for screening for other disorder; Z13.0 Encounter for screening for diseases of the blood and blood-forming organs and certain disorders involving the immune mechanism

== ENCOUNTER 2022-12-15 10:59 | Emergency (ER) | payer OTHER ==
[~2022-12-15] VITALS: Ht 167.6 cm; Wt 101.6 kg
[~2022-12-15 10:59] MED LIST changes: +CEFUROXIME AXE250 MG PO; +HYDROXYZINE HCL25 MG PO; +Ipratropium Brom3 ML INH; +LEVOTHYROXINE75 MCG PO; +MONTELUKAST SOD10 MG PO; +PREDNISONE5 MG PO; +TOPROL XL50 M1 PO; +XHANCE16 ML INH
[2022-12-15 11:23] VITALS: BP 137/91
== END 2022-12-15 12:56 | disposition home or self-care (01) ==
LOC: ED 10:59
DX: S83.91XA Sprain of unspecified site of right knee, initial encounter (principal); I10 Essential (primary) hypertension; E78.00 Pure hypercholesterolemia, unspecified; J45.909 Unspecified asthma, uncomplicated; Z90.11 Acquired absence of right breast and nipple; Z98.890 Other specified postprocedural states; X58.XXXA Exposure to other specified factors, initial encounter; Y93.89 Activity, other specified; Y92.009 Unspecified place in unspecified non-institutional (private) residence as the place of occurrence of the external cause; Y99.8 Other external cause status

== ENCOUNTER → 2023-01-30 | Outpatient (CLI) | payer MEDICARE, OTHER ==
[2023-01-30 09:05] LABS: FREE T4 1.56 ng/dl (0.89-1.76); THYROID STIM HORMONE (HS) 0.299 uIU/ml (0.550-4.780)
== END | disposition home or self-care (01) ==
LOC: LAB 07:54
PROVIDERS: ATTEND Internal Medicine
DX: E11.9 Type 2 diabetes mellitus without complications (principal); I10 Essential (primary) hypertension; E55.9 Vitamin D deficiency, unspecified; E78.2 Mixed hyperlipidemia; E03.9 Hypothyroidism, unspecified

== ENCOUNTER → 2023-12-04 | Outpatient (CLI) | payer MEDICARE, OTHER ==
[2023-12-04 11:23] LABS: BASO # 0.1 10*3/uL (0.0-0.1); EOS # 0.3 10*3/uL (0.0-0.4); EOS % 6.4 % (1.0-4.0); HEMATOCRIT 46.4 % (37.0-47.0); LYMPH % 38.5 % (27.0-41.0); MEAN CELL VOLUME 101.3 fl (81.0-99.0); MEAN CORPUSCULAR HGB 32.3 pg (27.0-31.0); MEAN CORPUSCULAR HGB CONC 31.9 g/dl (33.0-37.0); MEAN PLATELET VOLUME 10.9 fl (9.6-12.3); MONO # 0.5 10*3/uL (0.1-1.0); MONO % 9.3 % (3.0-9.0); NEUT # 2.3 10*3/uL (2.3-7.9); NEUT % 44.6 % (47.0-73.0); PLATELET COUNT AUTOMATED 201 10*3/uL (130-400); RED BLOOD COUNT 4.58 10*6/uL (4.10-5.10); RED CELL DISTRI WIDTH 13.1 % (0-14.5); WHITE BLOOD COUNT 5.1 10*3/uL (4.8-10.8)
[2023-12-04 12:03] LABS: ALKALINE PHOSPHATASE 72 U/L (46-116); BUN 8 mg/dl (9-23); CHLORIDE 104 mmol/L (98-107); CHOLESTEROL 185 mg/dL (<200); FREE T4 1.38 ng/dl (0.89-1.76); LDL CHOLESTEROL 101 mg/dL (9-159); POTASSIUM 3.8 mmol/L (3.4-5.1); SGPT/ALT 16 U/L (5-49); TOTAL PROTEIN 7.4 gm/dL (6.0-8.0); TRIGLYCERIDES 129 mg/dl (<150)
[2023-12-04 12:05] LABS: VITAMIN D, 25-HYDROXY 24.6 ng/mL (30-100)
== END | disposition home or self-care (01) ==
LOC: LAB 11:01
PROVIDERS: ATTEND Internal Medicine
DX: Z13.0 Encounter for screening for diseases of the blood and blood-forming organs and certain disorders involving the immune mechanism (principal); Z13.1 Encounter for screening for diabetes mellitus; Z13.220 Encounter for screening for lipoid disorders; Z13.228 Encounter for screening for other metabolic disorders; Z13.29 Encounter for screening for other suspected endocrine disorder; Z13.6 Encounter for screening for cardiovascular disorders; Z13.89 Encounter for screening for other disorder; Z13.9 Encounter for screening, unspecified; I10 Essential (primary) hypertension; J96.01 Acute respiratory failure with hypoxia; M75.01 Adhesive capsulitis of right shoulder

== ENCOUNTER 2024-01-09 14:34 | Emergency (ER) | payer MEDICARE, OTHER ==
[~2024-01-09] VITALS: Ht 167.6 cm; Wt 102.1 kg
[~2024-01-09 14:34] MED LIST changes: +CARVEDILOL6.25 MG PO
[2024-01-09 15:06] VITALS: BP 160/88
[2024-01-09] MEDS ORDERED: Albuterol Sulf/Ipratropium 3 ML VIAL NEB ONE (15:25)
[2024-01-09] MEDS ORDERED: predniSONE 20 MG TAB PO ONE (15:25)
[2024-01-09 16:17] LABS: ALKALINE PHOSPHATASE 68 U/L (46-116); BUN 7 mg/dl (9-23); CHLORIDE 105 mmol/L (98-107); POTASSIUM 4.3 mmol/L (3.4-5.1); SGPT/ALT 29 U/L (5-49)
[2024-01-09] MEDS ORDERED: PREDNISONE50 MG PO (17:20)
[2024-01-09] MEDS ORDERED: VIBRAMYCIN100 MG PO (17:20)
== END 2024-01-09 18:02 | disposition home or self-care (01) ==
LOC: ED 14:34
PROVIDERS: Emergency Medicine
DX: J44.89 Other specified chronic obstructive pulmonary disease (principal); J45.901 Unspecified asthma with (acute) exacerbation; Z79.899 Other long term (current) drug therapy

== ENCOUNTER 2024-01-31 15:06 | Emergency (ER) | payer MEDICARE, OTHER ==
[~2024-01-31] VITALS: Ht 167.6 cm; Wt 104.3 kg
[~2024-01-31 15:06] MED LIST changes: +PREDNISONE50 MG PO; +VIBRAMYCIN100 MG PO
[2024-01-31 15:20] VITALS: BP 144/92
[2024-01-31 16:09] LABS: BASO # 0.1 10*3/uL (0.0-0.1); BASO % 1.2 % (0.0-1.0); EOS # 0.7 10*3/uL (0.0-0.4); EOS % 14.1 % (1.0-4.0); HEMATOCRIT 43.6 % (37.0-47.0); LYMPH % 39.7 % (27.0-41.0); MEAN CELL VOLUME 102.3 fl (81.0-99.0); MEAN CORPUSCULAR HGB 33.3 pg (27.0-31.0); MEAN CORPUSCULAR HGB CONC 32.6 g/dl (33.0-37.0); MEAN PLATELET VOLUME 11.5 fl (9.6-12.3); MONO # 0.5 10*3/uL (0.1-1.0); MONO % 9.4 % (3.0-9.0); NEUT # 1.8 10*3/uL (2.3-7.9); NEUT % 35.6 % (47.0-73.0); PLATELET COUNT AUTOMATED 179 10*3/uL (130-400); RED BLOOD COUNT 4.26 10*6/uL (4.10-5.10); RED CELL DISTRI WIDTH 12.9 % (0-14.5); WHITE BLOOD COUNT 5.1 10*3/uL (4.8-10.8)
[2024-01-31] MEDS ORDERED: Albuterol Sulf/Ipratropium 3 ML VIAL NEB ONE (16:20)
[2024-01-31 16:26] LABS: ACT PARTIAL THROMBO TIME 25.7 SECONDS (20.0-32.1)
[2024-01-31 16:31] LABS: ALKALINE PHOSPHATASE 70 U/L (46-116); BUN 6 mg/dl (9-23); CHLORIDE 106 mmol/L (98-107); SGPT/ALT 24 U/L (5-49); TOTAL PROTEIN 7.1 gm/dL (6.0-8.0)
[2024-01-31] MEDS ORDERED: methylPREDNISolone sod succ 125 MG VIAL IV ONE (17:35)
[2024-01-31] MEDS ORDERED: PREDNISONE20 M1 PO (18:01)
[2024-01-31] MEDS ORDERED: AMOX-CLAV 875-1 EACH PO (18:01)
== END 2024-01-31 18:21 | disposition home or self-care (01) ==
LOC: ED 15:06
PROVIDERS: Internal Medicine
DX: J44.1 Chronic obstructive pulmonary disease with (acute) exacerbation (principal); I10 Essential (primary) hypertension; E78.00 Pure hypercholesterolemia, unspecified; F17.290 Nicotine dependence, other tobacco product, uncomplicated; Z98.890 Other specified postprocedural states

== ENCOUNTER 2024-02-16 15:02 | Inpatient (IN) | payer MEDICARE, OTHER ==
[~2024-02-16] VITALS: Ht 170.1 cm; Wt 104.6 kg
[~2024-02-16 15:02] MED LIST changes: +AMOX-CLAV 875-1 EACH PO
[2024-02-16 15:45] VITALS: BP 114/82
[2024-02-16] MEDS ORDERED: Albuterol Sulf/Ipratropium 3 ML VIAL NEB ONE ×2 (16:00→22:05)
[2024-02-16] MEDS ORDERED: methylPREDNISolone sod succ 125 MG VIAL IV ONE (16:00)
[2024-02-16] MEDS ORDERED: methylPREDNISolone sod succ 1,000 MG/16 ML VIAL IM ONE (16:40)
[2024-02-16] MEDS ORDERED: methylPREDNISolone sod succ 125 MG VIAL IM ONE (16:50)
[2024-02-16 20:03] VITALS: BP 116/78
[2024-02-16 20:08] LABS: HEMATOCRIT 45.9 % (37.0-47.0); MEAN CELL VOLUME 101.1 fl (81.0-99.0); MEAN CORPUSCULAR HGB CONC 32.7 g/dl (33.0-37.0); MEAN PLATELET VOLUME 10.4 fl (9.6-12.3); PLATELET COUNT AUTOMATED 161 10*3/uL (130-400); RED BLOOD COUNT 4.54 10*6/uL (4.10-5.10); RED CELL DISTRI WIDTH 13.7 % (0-14.5); WHITE BLOOD COUNT 12.6 10*3/uL (4.8-10.8)
[2024-02-16 20:09] LABS: MANUAL DIFF REFLEX YES
[2024-02-16] MEDS ORDERED: SODIUM CHLORIDE 0.9% 1,000 ML IV ONE (20:10)
[2024-02-16 20:30] LABS: ALKALINE PHOSPHATASE 61 U/L (46-116); BUN 7 mg/dl (9-23); CHLORIDE 101 mmol/L (98-107); POTASSIUM 4.1 mmol/L (3.4-5.1); SGPT/ALT 42 U/L (5-49); TOTAL PROTEIN 7.4 gm/dL (6.0-8.0)
[2024-02-16 20:32] LABS: PLATELET SUFFICIENCY NORMAL (NORMAL); TOTAL CELLS COUNTED 100 #CELLS
[2024-02-16] MEDS ORDERED: SODIUM CHLORIDE 0.9% 1,000 ML IV SCH (22:05)
[2024-02-16] MEDS ORDERED: AZITHROMYCIN 250 ML IV ONE (22:05)
[2024-02-16] MEDS ORDERED: Ceftriaxone Sodium 1 GM/10 ML SYR IV ONE (22:05)
[2024-02-16] MEDS ORDERED: Montelukast Sodium 10 MG TAB PO PRN (22:55)
[2024-02-16] MEDS ORDERED: hydrOXYzine pamoate 25 MG CAP PO PRN (22:55)
[2024-02-16] MEDS ORDERED: Albuterol Sulf/Ipratropium 3 ML VIAL NEB SCH (23:05)
[2024-02-17 00:56] VITALS: BP 122/74
[2024-02-17 04:01] LABS: BASO % 0.1 % (0.0-1.0); HEMATOCRIT 42.8 % (37.0-47.0); LYMPH # 0.8 10*3/uL (1.3-4.4); LYMPH % 10.9 % (27.0-41.0); MEAN CELL VOLUME 99.3 fl (81.0-99.0); MEAN CORPUSCULAR HGB 32.7 pg (27.0-31.0); MEAN CORPUSCULAR HGB CONC 32.9 g/dl (33.0-37.0); MEAN PLATELET VOLUME 10.6 fl (9.6-12.3); MONO # 0.1 10*3/uL (0.1-1.0); MONO % 0.9 % (3.0-9.0); NEUT % 87.7 % (47.0-73.0); PLATELET COUNT AUTOMATED 164 10*3/uL (130-400); RED BLOOD COUNT 4.31 10*6/uL (4.10-5.10); RED CELL DISTRI WIDTH 13.5 % (0-14.5); WHITE BLOOD COUNT 6.9 10*3/uL (4.8-10.8)
[2024-02-17 04:23] LABS: BUN 9 mg/dl (9-23); CHLORIDE 102 mmol/L (98-107); POTASSIUM 4.1 mmol/L (3.4-5.1)
[2024-02-17 05:19] VITALS: BP 156/88
[2024-02-17] MEDS ORDERED: methylPREDNISolone sod succ 40 MG VIAL IV SCH ×3 (06:00→22:00)
[2024-02-17] MEDS ORDERED: SODIUM CHLORIDE 0.9% 50 ML BAG IV ONE (07:26)
[2024-02-17] MEDS ORDERED: Levothyroxine Sodium 75 MCG TAB PO SCH (10:00)
[2024-02-17] MEDS ORDERED: CARVEDILOL 6.25 MG TAB PO SCH (10:00)
[2024-02-17 12:00] VITALS: BP 142/80
[2024-02-17 16:10] VITALS: BP 125/72
[2024-02-17] MEDS ORDERED: methylPREDNISolone sod succ 40 MG VIAL IV ONE (16:10)
[2024-02-17 19:44] VITALS: BP 135/75
[2024-02-17] MEDS ORDERED: Ceftriaxone Sodium 1 GM,IV 1 EA in SYRINGE INFUSION 10 ML IV SCH (22:00)
[2024-02-17 22:32] VITALS: BP 110/62
[2024-02-18 00:20] VITALS: BP 124/86
[2024-02-18 08:00] VITALS: BP 117/71
[2024-02-18 12:00] VITALS: BP 119/85
[2024-02-18 16:00] VITALS: BP 122/77
[2024-02-18] MEDS ORDERED: DEXTROSE 10 % IN WATER 250 ML IV PRN (16:40)
[2024-02-18 20:00] VITALS: BP 131/87
[2024-02-18] MEDS ORDERED: GUAIFENESIN 600 MG TAB ER PO SCH (22:00)
[2024-02-18] MEDS ORDERED: INSULIN LISPRO 1 UNIT/0.01 ML SQ SCH (22:00)
[2024-02-19] VITALS: BP 132/88
[2024-02-19 08:00] VITALS: BP 138/84
[2024-02-19 12:00] VITALS: BP 131/87
[2024-02-19 16:00] VITALS: BP 148/85
[2024-02-19 20:00] VITALS: BP 121/70
[2024-02-20] VITALS: BP 126/79
[2024-02-20 08:00] VITALS: BP 147/90
[2024-02-20] MEDS ORDERED: AZITHROMYCIN500 M2 PO (10:34)
== END 2024-02-20 12:01 | disposition home or self-care (01) | DRG 189 ==
LOC: ED 15:02 → 4E 22:17 → EDHOLD 22:17 → 4E 02-17 23:58
PROVIDERS: Student in an Organized Health Care Education/Training Program; ADMIT Internal Medicine; ATTEND Internal Medicine
DX: J96.20 Acute and chronic respiratory failure, unspecified whether with hypoxia or hypercapnia (principal); J45.51 Severe persistent asthma with (acute) exacerbation; J44.1 Chronic obstructive pulmonary disease with (acute) exacerbation; I10 Essential (primary) hypertension; E66.01 Morbid (severe) obesity due to excess calories; R73.9 Hyperglycemia, unspecified; T38.0X5A Adverse effect of glucocorticoids and synthetic analogues, initial encounter; E03.9 Hypothyroidism, unspecified; F41.1 Generalized anxiety disorder; Z79.899 Other long term (current) drug therapy; Z79.01 Long term (current) use of anticoagulants; Z79.2 Long term (current) use of antibiotics; Z85.3 Personal history of malignant neoplasm of breast; Z82.49 Family history of ischemic heart disease and other diseases of the circulatory system; Z80.8 Family history of malignant neoplasm of other organs or systems; Y92.89 Other specified places as the place of occurrence of the external cause; Z68.36 Body mass index [BMI] 36.0-36.9, adult

== ENCOUNTER → 2024-02-28 | Day surgery (SDC) | payer MEDICARE, OTHER ==
[~2024-02-28] VITALS: Ht 167.6 cm; Wt 104.3 kg
[~2024-02-28] MED LIST changes: +AZITHROMYCIN500 M2 PO; +Albuterol Sulf/Ipratropium 3 ML VIAL NEB ONE; +Albuterol Sulfate 2.5 MG/0.5 ML VIAL NEB ONE; +Lactated Ringer's Solution 1,000 ML IV ONE; +Lidocaine Hydrochloride 4% 5 ML AMP ONE; +Midazolam Hydrochloride 2 MG/2 ML VIAL IV ONE; +PROPOFOL 200 MG/20 ML VIAL IV ONE
[2024-02-28 07:50] VITALS: BP 107/79
[2024-02-28 09:48] VITALS: BP 91/51
[2024-02-28 10:03] VITALS: BP 101/54
[2024-02-28 10:17] VITALS: BP 110/58
[2024-02-29 12:09] LABS: ACID FAST SPEC PROCESSING Concentration (.)
== END | disposition home or self-care (01) ==
LOC: SDC 02-26 08:45
PROVIDERS: ATTEND Internal Medicine Critical Care Medicine
DX: R05.1 Acute cough (principal); J45.50 Severe persistent asthma, uncomplicated; J30.89 Other allergic rhinitis; J98.6 Disorders of diaphragm; J44.9 Chronic obstructive pulmonary disease, unspecified; I10 Essential (primary) hypertension; E78.00 Pure hypercholesterolemia, unspecified; F41.9 Anxiety disorder, unspecified; Z85.3 Personal history of malignant neoplasm of breast; Z87.891 Personal history of nicotine dependence; Z98.890 Other specified postprocedural states; Z80.1 Family history of malignant neoplasm of trachea, bronchus and lung